=== PATIENT | male | born 1995 | race Two or more races ===

== ENCOUNTER 2020-03-14 07:30 | Day surgery (SDC) | payer OTHER | END 2020-03-14 13:05 | disposition home or self-care (01) | LOC: AMB-ENDOS 07:30 | PROVIDERS: ATTEND Colon & Rectal Surgery | DX: D12.8 Benign neoplasm of rectum (principal); K62.82 Dysplasia of anus; K64.1 Second degree hemorrhoids; Z20.828 Contact with and (suspected) exposure to other viral communicable diseases ==

== ENCOUNTER 2020-08-22 07:40 | Day surgery (SDC) | payer OTHER | END 2020-08-22 14:00 | disposition home or self-care (01) | LOC: AMB-ENDOS 07:40 | PROVIDERS: ATTEND Colon & Rectal Surgery | DX: K62.89 Other specified diseases of anus and rectum (principal); K64.1 Second degree hemorrhoids; Z20.828 Contact with and (suspected) exposure to other viral communicable diseases ==